=== PATIENT | female | born 2000 | race Caucasian/White ===

== ENCOUNTER 2021-08-08 16:11 | Inpatient (IN) | payer BC ==
[2021-08-08 16:56] LABS: #Monocytes 0.2 10x3/uL (0.0-1.1); #Neutrophils 6.6 10x3/uL (1.5-8.4); %Basophils 0.4 % (0.0-2.0); %Lymphocytes 8.6 % (18.0-47.0); %Monocytes 2.4 % (0.0-10.0); %Neutrophils 88.2 % (40.0-75.0); Hemoglobin 15.6 g/dL (12.0-15.5); Mean Corpuscular HGB CONC 32.6 g/dL (32.0-36.0); Mean Corpuscular Hemoglobin 29.6 pg (27.0-33.0); Mean Corpuscular Volume 90.7 fl (81.6-98.3); Mean Platelet Volume 10.9 fl (7.4-10.4); Platelet Count 328 10x3/uL (150-450); RBC Distribution Width 12.2 % (11.5-14.5); Red Blood Cell (RBC) Count 5.27 10x6/uL (3.90-5.03); White Blood Cell (WBC) Count 7.4 10x3/uL (3.5-10.5)
[2021-08-08 16:57] LABS: Actual Bicarbonate (HCO3v) 6 mEq/L (22-28); Base Excess -21.2 mEq/L (-2.0 to +3.0); Chloride (VBG) 105 mmol/L (98-106); Hemoglobin (Hb) 16.3 g/dL (11.7-15.5); Potassium (VBG) 4.52 mmol/L (3.70-5.30); Puncture Site Other Site; RapidComm Collect By CBN; pH (venous) 7.11 (7.32-7.43)
[2021-08-08 17:15] LABS: ALT (SGPT) 11 U/L (8-55); AST (SGOT) 17 U/L (5-30); Alkaline Phosphatase 106 U/L (40-100); BUN (Urea Nitrogen) 18 mg/dL (8.4-21.0); Bilirubin, Total 0.3 mg/dL (0.2-1.2); Calc. Creatinine Clearance 0 mL/min (70-130); Calcium 9.3 mg/dL (7.8-10.44); Chloride 105 mmol/L (98-107); Globulin 3.7 g/dL (2.4-3.5); Glucose 323 mg/dL (70-105); Potassium 4.6 mmol/L (3.5-5.1); Protein, Total 8.7 g/dL (6.0-8.3); Sodium 136 mmol/L (136-145)
[2021-08-08 17:19] LABS: Carbon Dioxide Less than 8 mmol/L (22-29)
[2021-08-08] MEDS ORDERED: Ondansetron PF 4 MG/2 ML Vial ONE (17:19)
[2021-08-08] MEDS ORDERED: Morphine 4 MG/ML VIAL ONE (17:27)
[2021-08-08 17:36] LABS: Lipase 653 U/L (8-78); Magnesium 1.9 mg/dL (1.7-2.2)
[2021-08-08 17:38] LABS: BHCG - Serum Negative (NEGATIVE); Pregs Control Background? CLEAR/WHITE (CLR/WHITE); Pregs Control Bar Appear? YES (CONTROL BAR)
[2021-08-08] MEDS ORDERED: INSULIN REGULAR IN 0.9 % NACL 100 UNIT/100 ML BAG ONE (17:52)
[2021-08-08] MEDS ORDERED: Insulin Regular 300 UNITS/3 ML VIAL ONE (17:52)
[2021-08-08] MEDS ORDERED: Potassium Chloride 20 MEQ TAB ONE (19:14)
[2021-08-08 19:45] LABS: SARS-CoV-2 NAA Rapid Test Not Detected (NotDetected)
[2021-08-08] MEDS ORDERED: D5 1/2 NS w/20 mEq KCL 1,000 ML IV PRN (23:36)
[2021-08-08] MEDS ORDERED: NS 0.9% w/ 20 MEQ KCL 1,000 ML IV PRN ×2 (23:36)
[2021-08-08] MEDS ORDERED: Sodium Chloride 0.9% 1,000 ML IV PRN ×4 (23:36)
[2021-08-08] MEDS ORDERED: Dextrose 5 %-0.45 % NaCl 1,000 ML IV PRN (23:36)
[2021-08-08] MEDS ORDERED: Electrolyte Replacement Protocol 1 EACH IVPB PRN (23:36)
[2021-08-08] MEDS ORDERED: Ondansetron PF 4 MG/2 ML Vial IVP PRN (23:37)
[2021-08-08] MEDS ORDERED: INSULIN REGULAR IN 0.9 % NACL 100 UNIT in Premix Bag 1 BAG IVPB SCH (23:45)
[2021-08-08] MEDS ORDERED: Morphine 4 MG/ML VIAL SLOW IVP PRN (23:49)
[2021-08-09] MEDS ORDERED: Magnesium 2 GM/50 ML 2 GM in Premix Bag 1 BAG IVPB SCH (01:45)
[2021-08-09] MEDS ORDERED: D5 1/2 NS w/20 mEq KCL 1,000 ML ONE (01:54)
[2021-08-09 01:57] LABS: Anion Gap 14 mmol/L (10-20); BUN (Urea Nitrogen) 11 mg/dL (8.4-21.0); Calc. Creatinine Clearance 0 mL/min (70-130); Calcium 7.9 mg/dL (7.8-10.44); Carbon Dioxide 14 mmol/L (22-29); Chloride 113 mmol/L (98-107); Glucose 116 mg/dL (70-105); Magnesium 1.5 mg/dL (1.7-2.2); Phosphorus 2.3 mg/dL (2.3-4.7); Potassium 3.7 mmol/L (3.5-5.1); Sodium 137 mmol/L (136-145)
[2021-08-09 03:27] VITALS: BMI 24.5
[2021-08-09 04:05] LABS: Hemoglobin 12.5 g/dL (12.0-15.5); Mean Corpuscular HGB CONC 33.3 g/dL (32.0-36.0); Mean Corpuscular Hemoglobin 29.6 pg (27.0-33.0); Mean Corpuscular Volume 88.9 fl (81.6-98.3); Mean Platelet Volume 10.4 fl (7.4-10.4); Platelet Count 260 10x3/uL (150-450); RBC Distribution Width 12.6 % (11.5-14.5); Red Blood Cell (RBC) Count 4.22 10x6/uL (3.90-5.03); White Blood Cell (WBC) Count 5.7 10x3/uL (3.5-10.5)
[2021-08-09 04:09] LABS: Anion Gap 15 mmol/L (10-20); BUN (Urea Nitrogen) 10 mg/dL (8.4-21.0); Calc. Creatinine Clearance 90 mL/min (70-130); Calcium 7.9 mg/dL (7.8-10.44); Carbon Dioxide 12 mmol/L (22-29); Chloride 114 mmol/L (98-107); Glucose 178 mg/dL (70-105); Potassium 3.9 mmol/L (3.5-5.1); Sodium 137 mmol/L (136-145)
[2021-08-09] MEDS ORDERED: Enoxaparin Sodium 40 MG/0.4 ML SYRINGE ONE (07:55)
[2021-08-09] MEDS: Enoxaparin Sodium 40 MG/0.4 ML SYRINGE SC SCH ×2 (08:01→08:25)
[2021-08-09 08:19] LABS: Anion Gap 10 mmol/L (10-20); BUN (Urea Nitrogen) 8 mg/dL (8.4-21.0); Calc. Creatinine Clearance 109 mL/min (70-130); Calcium 7.8 mg/dL (7.8-10.44); Carbon Dioxide 15 mmol/L (22-29); Chloride 113 mmol/L (98-107); Glucose 197 mg/dL (70-105); Potassium 3.6 mmol/L (3.5-5.1); Sodium 134 mmol/L (136-145)
[2021-08-09] MEDS ORDERED: Dextrose 50% Abboject 50 ML SYRINGE SLOW IVP PRN ×2 (12:21→19:53)
[2021-08-09] MEDS ORDERED: Dextrose 5% in Water 1,000 ML IV PRN ×2 (12:21→19:53)
[2021-08-09] MEDS ORDERED: Acetaminophen 500 MG TAB PO PRN (12:31)
[2021-08-09] MEDS ORDERED: HYDROcodone/Acetaminophen 5/325 mg Tablet PO PRN (12:31)
[2021-08-09] MEDS ORDERED: Acetaminophen 650 MG Suppository PR PRN (12:31)
[2021-08-09] MEDS ORDERED: Morphine 4 MG/ML VIAL SLOW IVP PRN (12:33)
[2021-08-09] MEDS: Lactated Ringer's 1,000 ML IV SCH (12:38)
[2021-08-09] MEDS ORDERED: Lantus 1000 UNITS/10 ML VIAL SC SCH ×2 (12:45→20:00)
[2021-08-09] MEDS ORDERED: Ibuprofen 400 MG TAB PO PRN (12:45)
[2021-08-09 16:10] LABS: Amphetamine Not Detected (NotDetected); Barbiturates Screen Not Detected (NotDetected); Benzodiazepine Screen Not Detected (NotDetected); Cocaine Metabolite Screen Not Detected (NotDetected); Methadone Not Detected (NotDetected); Methamphetamine Not Detected (NotDetected); Opiate Screen Detected (NotDetected); Oxycodone Screen Not Detected (NotDetected); Phencyclidine (PCP) Not Detected (NotDetected); THC/Cannabinoid Screen Detected (NotDetected); Tricyclic Screen Not Detected (NotDetected)
[2021-08-09] MEDS: HumaLOG 300 UNITS/3 ML VIAL SC PRN ×2 (16:29→20:52)
[2021-08-09 18:21] LABS: Anion Gap 10 mmol/L (10-20); BUN (Urea Nitrogen) 6 mg/dL (8.4-21.0); Calc. Creatinine Clearance 118 mL/min (70-130); Calcium 7.9 mg/dL (7.8-10.44); Carbon Dioxide 19 mmol/L (22-29); Chloride 110 mmol/L (98-107); Glucose 338 mg/dL (70-105); Potassium 3.6 mmol/L (3.5-5.1); Sodium 135 mmol/L (136-145)
[2021-08-10] MEDS: HumaLOG 300 UNITS/3 ML VIAL SC PRN (00:42)
[2021-08-10] MEDS: Lactated Ringer's 1,000 ML IV SCH (03:27)
[2021-08-10 04:46] LABS: #Monocytes 0.3 10x3/uL (0.0-1.1); %Basophils 0.6 % (0.0-2.0); %Eosinophils 0.9 % (0.0-6.0); %Lymphocytes 40.1 % (18.0-47.0); %Monocytes 8.9 % (0.0-10.0); Hemoglobin 11.3 g/dL (12.0-15.5); Mean Corpuscular HGB CONC 33.1 g/dL (32.0-36.0); Mean Corpuscular Hemoglobin 29.2 pg (27.0-33.0); Mean Corpuscular Volume 88.1 fl (81.6-98.3); Mean Platelet Volume 10.5 fl (7.4-10.4); Platelet Count 222 10x3/uL (150-450); RBC Distribution Width 12.6 % (11.5-14.5); Red Blood Cell (RBC) Count 3.87 10x6/uL (3.90-5.03); White Blood Cell (WBC) Count 3.5 10x3/uL (3.5-10.5)
[2021-08-10 04:47] LABS: #Neutrophils 1.7 10x3/uL (1.5-8.4); %Neutrophils 49.5 % (40.0-75.0)
[2021-08-10 05:08] LABS: ALT (SGPT) 6 U/L (8-55); AST (SGOT) 12 U/L (5-30); Albumin 3.3 g/dL (3.5-5.0); Alkaline Phosphatase 65 U/L (40-100); Anion Gap 9 mmol/L (10-20); BUN (Urea Nitrogen) 7 mg/dL (8.4-21.0); Bilirubin, Total 0.3 mg/dL (0.2-1.2); Calc. Creatinine Clearance 141 mL/min (70-130); Calcium 8.3 mg/dL (7.8-10.44); Carbon Dioxide 21 mmol/L (22-29); Chloride 112 mmol/L (98-107); Globulin 2.2 g/dL (2.4-3.5); Glucose 125 mg/dL (70-105); Magnesium 1.6 mg/dL (1.7-2.2); Potassium 3.4 mmol/L (3.5-5.1); Protein, Total 5.5 g/dL (6.0-8.3); Sodium 139 mmol/L (136-145)
[2021-08-10] MEDS ORDERED: Potassium Chloride 20 MEQ TAB PO SCH (06:30)
[2021-08-10] MEDS ORDERED: Magnesium 2 GM/50 ML 2 GM in Premix Bag 1 BAG IVPB SCH (06:30)
[2021-08-10 07:44] VITALS: BP 111/84; TEMP 97.2
[2021-08-10] MEDS: Enoxaparin Sodium 40 MG/0.4 ML SYRINGE SC SCH (08:07)
[2021-08-10] MEDS ORDERED: Lantus 1000 UNITS/10 ML VIAL SC SCH (09:00)
[2021-08-10 12:52] LABS: Hemoglobin A1c 12.6 % (4.0-6.0)
== END 2021-08-10 10:32 | disposition home or self-care (01) | DRG 637 ==
LOC: CSHERS 16:11 → CSHERHOLD 20:36 → OBSVTOIN 20:36 → CSHIMCU 08-09 03:17
PROVIDERS: ADMIT Family Medicine; ATTEND Family Medicine
DX: E10.10 Type 1 diabetes mellitus with ketoacidosis without coma (principal); K85.90 Acute pancreatitis without necrosis or infection, unspecified; F12.10 Cannabis abuse, uncomplicated; F32.A Depression, unspecified; F41.9 Anxiety disorder, unspecified; G47.00 Insomnia, unspecified; Z20.822 Contact with and (suspected) exposure to COVID-19; Z79.4 Long term (current) use of insulin; Z79.899 Other long term (current) drug therapy; Z79.891 Long term (current) use of opiate analgesic
CPT/HCPCS: 0240U; 36415; 36416; 71045; 80048; 80053; 80306; 82010; 82805; 83036; 83690; 83735; 84100; 84484; 84703; 85025; 85027; 93005; J1650; J1815; J2270; J2405; J3475; J3480; J7120

== ENCOUNTER 2022-01-31 18:53 | Emergency (ER) | payer BC ==
[2022-01-31] MEDS ORDERED: Ketorolac Tromethamine 30 MG/ML VIAL ONE (19:34)
[2022-01-31] MEDS ORDERED: Metoclopramide HCl 10 MG/2 ML VIAL ONE (19:34)
[2022-01-31] MEDS ORDERED: diphenhydrAMINE 50 MG/ML VIAL ONE (19:34)
[2022-01-31 20:13] LABS: ALT (SGPT) 12 U/L (8-55); AST (SGOT) 12 U/L (5-34); Albumin 4.1 g/dL (3.5-5.0); Alkaline Phosphatase 70 U/L (40-100); Anion Gap 16 mmol/L (10-20); BUN (Urea Nitrogen) 14 mg/dL (7.0-18.7); Bilirubin, Total 0.2 mg/dL (0.2-1.2); Calc. Creatinine Clearance 0 mL/min (70-130); Calcium 9.3 mg/dL (7.8-10.44); Carbon Dioxide 22 mmol/L (22-29); Chloride 104 mmol/L (98-107); Estimated GFR 121; Globulin 2.7 g/dL (2.4-3.5); Glucose 132 mg/dL (70-105); Potassium 3.9 mmol/L (3.5-5.1); Protein, Total 6.8 g/dL (6.0-8.3); Sodium 138 mmol/L (136-145)
[2022-01-31 20:14] LABS: Actual Bicarbonate (HCO3v) 21 mEq/L (22-28); Base Excess -2.3 mEq/L (-2.0 to +3.0); Chloride (VBG) 104 mmol/L (98-106); Critical Notified By: CP.PH; Hemoglobin (Hb) 13.2 g/dL (11.7-15.5); Potassium (VBG) 4.01 mmol/L (3.70-5.30); Puncture Site Other Site; Sodium 136.7 mmol/L (133-146); pH (venous) 7.42 (7.32-7.43)
[2022-01-31 20:16] LABS: #Monocytes 0.2 10x3/uL (0.0-1.1); #Neutrophils 3.6 10x3/uL (1.5-8.4); %Basophils 0.5 % (0.0-2.0); %Lymphocytes 2.5 % (18.0-47.0); %Monocytes 5.2 % (0.0-10.0); %Neutrophils 90.3 % (40.0-75.0); Hemoglobin 12.5 g/dL (12.0-15.5); Mean Corpuscular HGB CONC 33.9 g/dL (32.0-36.0); Mean Corpuscular Hemoglobin 30.3 pg (27.0-33.0); Mean Corpuscular Volume 89.3 fl (81.6-98.3); Mean Platelet Volume 10.2 fl (7.4-10.4); Platelet Count 222 10x3/uL (150-450); RBC Distribution Width 11.6 % (11.5-14.5); Red Blood Cell (RBC) Count 4.13 10x6/uL (3.90-5.03)
[2022-01-31 21:04] LABS: SARS-CoV-2 NAA Rapid Test DETECTED (NotDetected)
== END 2022-01-31 21:50 | disposition home or self-care (01) ==
LOC: CSHERS 18:53
DX: U07.1 COVID-19 (principal); E10.9 Type 1 diabetes mellitus without complications; E03.9 Hypothyroidism, unspecified; Z79.4 Long term (current) use of insulin; Z79.899 Other long term (current) drug therapy
CPT/HCPCS: 36415; 70450; 71045; 80053; 82805; 85025; 96372; 96374; 96375; J1200; J1885; J2765

== ENCOUNTER 2022-04-11 10:49 | Inpatient (IN) | payer BC ==
[2022-04-11 11:49] LABS: Actual Bicarbonate (HCO3v) 11 mEq/L (22-28); Base Excess -15.1 mEq/L (-2.0 to +3.0); Calcium, Ionized (venous) 1.29 mmol/L (1.16-1.32); Chloride (VBG) 99 mmol/L (98-106); Hemoglobin (Hb) 14.7 g/dL (11.7-15.5); Potassium (VBG) 4.67 mmol/L (3.70-5.30); Puncture Site Other Site; Sodium 135.9 mmol/L (133-146); pH (venous) 7.21 (7.32-7.43)
[2022-04-11] MEDS ORDERED: Ondansetron PF 4 MG/2 ML Vial ONE (11:56)
[2022-04-11] MEDS ORDERED: INSULIN REGULAR IN 0.9 % NACL 100 UNIT/100 ML BAG ONE (11:56)
[2022-04-11 12:04] LABS: #Monocytes 0.3 10x3/uL (0.0-1.1); #Neutrophils 4.6 10x3/uL (1.5-8.4); %Basophils 0.6 % (0.0-2.0); %Eosinophils 0.5 % (0.0-6.0); %Lymphocytes 23.3 % (18.0-47.0); %Monocytes 4.6 % (0.0-10.0); %Neutrophils 70.7 % (40.0-75.0); Mean Corpuscular HGB CONC 33.7 g/dL (32.0-36.0); Mean Corpuscular Volume 86.3 fl (81.6-98.3); Mean Platelet Volume 10.9 fl (7.4-10.4); Platelet Count 325 10x3/uL (150-450); RBC Distribution Width 11.7 % (11.5-14.5); Red Blood Cell (RBC) Count 4.82 10x6/uL (3.90-5.03); White Blood Cell (WBC) Count 6.5 10x3/uL (3.5-10.5)
[2022-04-11 12:26] LABS: BHCG - Serum Negative (NEGATIVE); Pregs Control Background? CLEAR/WHITE (CLR/WHITE); Pregs Control Bar Appear? YES (CONTROL BAR)
[2022-04-11 12:36] LABS: ALT (SGPT) 13 U/L (8-55); AST (SGOT) 13 U/L (5-34); Albumin 4.8 g/dL (3.5-5.0); Alkaline Phosphatase 103 U/L (40-100); Anion Gap 29 mmol/L (10-20); BUN (Urea Nitrogen) 23 mg/dL (7.0-18.7); Bilirubin, Total 0.5 mg/dL (0.2-1.2); CK (CPK) 28 U/L (29-168); Calc. Creatinine Clearance 0 mL/min (70-130); Calcium 10.1 mg/dL (7.8-10.44); Carbon Dioxide 11 mmol/L (22-29); Chloride 100 mmol/L (98-107); Estimated GFR 60; Globulin 3.1 g/dL (2.4-3.5); Glucose 539 mg/dL (70-105); Lipase 13 U/L (8-78); Magnesium 1.9 mg/dL (1.7-2.2); Phosphorus 5.3 mg/dL (2.3-4.7); Potassium 4.5 mmol/L (3.5-5.1); Protein, Total 7.9 g/dL (6.0-8.3); Sodium 135 mmol/L (136-145)
[2022-04-11] MEDS ORDERED: Dextrose 5 %-0.45 % NaCl 1,000 ML IV PRN (12:55)
[2022-04-11] MEDS ORDERED: Electrolyte Replacement Protocol 1 EACH IVPB SCH (12:55)
[2022-04-11] MEDS ORDERED: NS 0.9% w/ 20 MEQ KCL 1,000 ML IV PRN ×2 (12:55)
[2022-04-11] MEDS ORDERED: Sodium Chloride 0.9% 1,000 ML IV PRN ×4 (12:55)
[2022-04-11] MEDS ORDERED: INSULIN REGULAR IN 0.9 % NACL 100 UNIT in Premix Bag 1 BAG IVPB SCH (13:30)
[2022-04-11 13:42] LABS: Anion Gap 25 mmol/L (10-20); BUN (Urea Nitrogen) 23 mg/dL (7.0-18.7); Calc. Creatinine Clearance 0 mL/min (70-130); Calcium 9.6 mg/dL (7.8-10.44); Carbon Dioxide 12 mmol/L (22-29); Chloride 103 mmol/L (98-107); Estimated GFR 67; Glucose 485 mg/dL (70-105); Potassium 4.3 mmol/L (3.5-5.1); Sodium 136 mmol/L (136-145)
[2022-04-11] MEDS ORDERED: Ondansetron PF 4 MG/2 ML Vial IVP PRN (13:50)
[2022-04-11] MEDS ORDERED: Magnesium 2 GM/50 ML(in water) 2 GM in Premix Bag 1 BAG IVPB SCH (14:00)
[2022-04-11] MEDS: D5 1/2 NS w/20 mEq KCL 1,000 ML IV PRN ×2 (14:23→19:10)
[2022-04-11] MEDS ORDERED: Iopamidol 300 61% 100 ML VIAL FS ONE (14:36)
[2022-04-11 14:43] VITALS: BMI 21.6
[2022-04-11 15:19] LABS: Anion Gap 16 mmol/L (10-20); BUN (Urea Nitrogen) 20 mg/dL (7.0-18.7); Calc. Creatinine Clearance 106 mL/min (70-130); Carbon Dioxide 17 mmol/L (22-29); Chloride 110 mmol/L (98-107); Estimated GFR 102; Glucose 150 mg/dL (70-105); Potassium 4.5 mmol/L (3.5-5.1); Sodium 138 mmol/L (136-145)
[2022-04-11 17:35] LABS: Anion Gap 14 mmol/L (10-20); BUN (Urea Nitrogen) 17 mg/dL (7.0-18.7); Calc. Creatinine Clearance 111 mL/min (70-130); Calcium 8.7 mg/dL (7.8-10.44); Carbon Dioxide 19 mmol/L (22-29); Chloride 109 mmol/L (98-107); Estimated GFR 108; Glucose 157 mg/dL (70-105); Potassium 4.5 mmol/L (3.5-5.1); Sodium 137 mmol/L (136-145)
[2022-04-11] MEDS ORDERED: Acetaminophen 325 MG TAB PO PRN (18:59)
[2022-04-11 20:05] LABS: Anion Gap 13 mmol/L (10-20); BUN (Urea Nitrogen) 14 mg/dL (7.0-18.7); Calc. Creatinine Clearance 111 mL/min (70-130); Calcium 8.6 mg/dL (7.8-10.44); Carbon Dioxide 19 mmol/L (22-29); Chloride 108 mmol/L (98-107); Estimated GFR 108; Glucose 185 mg/dL (70-105); Potassium 4.4 mmol/L (3.5-5.1); Sodium 136 mmol/L (136-145)
[2022-04-11] MEDS ORDERED: Dextrose 50% Abboject 50 ML SYRINGE SLOW IVP PRN (21:07)
[2022-04-11] MEDS ORDERED: Dextrose 5% in Water 1,000 ML IV PRN (21:07)
[2022-04-11] MEDS ORDERED: Lantus 1000 UNITS/10 ML VIAL SC SCH (21:15)
[2022-04-11 21:18] LABS: Anion Gap 13 mmol/L (10-20); BUN (Urea Nitrogen) 13 mg/dL (7.0-18.7); Calc. Creatinine Clearance 115 mL/min (70-130); Calcium 8.5 mg/dL (7.8-10.44); Carbon Dioxide 19 mmol/L (22-29); Chloride 106 mmol/L (98-107); Estimated GFR 113; Glucose 181 mg/dL (70-105); Potassium 4.3 mmol/L (3.5-5.1); Sodium 134 mmol/L (136-145)
[2022-04-12] MEDS: HumaLOG 300 UNITS/3 ML VIAL SC PRN ×3 (00:24→11:32)
[2022-04-12 00:38] LABS: Bilirubin Neg (Negative); Blood, Urine Negative (Negative); Clarity Clear (Clear); Glucose, Urine (Dipstick) >=1000 mg/dL (Negative); Ketone, Urine 150 mg/dL (Negative); Leukocyte 25 (Negative); Nitrite Negative (Negative); Protein, Urine (Dipstick) Negative (Neg-Trace); Specific Gravity, Urine 1.015 (1.002-1.036); Urobilinogen Normal mg/dL (Less than 2)
[2022-04-12 00:47] LABS: Bacteria/HPF None Seen HPF (None Seen); RBC/HPF 0-3 HPF (0-3); Squamous Epithelial 0-3 HPF (0-3); WBC/HPF 0-3 HPF (0-3)
[2022-04-12 04:49] LABS: Anion Gap 9 mmol/L (10-20); BUN (Urea Nitrogen) 12 mg/dL (7.0-18.7); Calc. Creatinine Clearance 123 mL/min (70-130); Calcium 8.8 mg/dL (7.8-10.44); Carbon Dioxide 22 mmol/L (22-29); Chloride 108 mmol/L (98-107); Estimated GFR 123; Glucose 114 mg/dL (70-105); Magnesium 1.7 mg/dL (1.7-2.2); Potassium 3.4 mmol/L (3.5-5.1); Sodium 136 mmol/L (136-145)
[2022-04-12] MEDS ORDERED: Magnesium 2 GM/50 ML(in water) 2 GM in Premix Bag 1 BAG IVPB SCH (05:15)
[2022-04-12] MEDS ORDERED: Potassium Chloride 20 MEQ TAB PO SCH (05:15)
[2022-04-12] MEDS ORDERED: Lantus 1000 UNITS/10 ML VIAL SC SCH (09:00)
[2022-04-12] MEDS ORDERED: Escitalopram Oxalate 10 mg Tablet PO SCH (09:00)
== END 2022-04-12 13:10 | disposition home or self-care (01) | DRG 639 ==
LOC: CSHERS 10:49 → CSHIMCU 13:20
PROVIDERS: ADMIT Hospitalist; ATTEND Emergency Medicine
DX: E10.10 Type 1 diabetes mellitus with ketoacidosis without coma (principal); E03.9 Hypothyroidism, unspecified; F32.A Depression, unspecified; F41.9 Anxiety disorder, unspecified; A08.4 Viral intestinal infection, unspecified; Z79.4 Long term (current) use of insulin; Z79.899 Other long term (current) drug therapy
CPT/HCPCS: 36415; 36416; 74177; 80048; 80053; 81001; 82010; 82550; 82805; 83605; 83690; 83735; 83930; 84100; 84443; 84484; 84703; 85025; 93005; 94760; 96365; 96375; J1815; J2405; J3475; J3480; J7042; J7050; Q9967; U0003; U0005